=== PATIENT | female | born 1985 ===

== ENCOUNTER 2018-03-21 10:59 | Observation (INO) | payer BC ==
--- NOTE | 2018-03-21 06:49 | PDGENHP ---
History and Physical History and Physical: Assessment and Plan: 1. Endometriosis of pelvic peritoneum Yue has chronic pelvic pain secondary to untreated extensive endometriosis. We reviewed all conservative and surgical options. She is scheduled for a robotic hysterectomy, BSO, excision of endometriosis, uterosacral ligament colpopexy, and cystoscopy. The risks, benefits, and alternatives were presented and informed consent obtained. 2. Chronic pelvic pain in female Subjective: Patient ID: Yue Bowers is a 32 y.o. female who presents to [facility] for endometriosis. REED Turner is a 32-year-old para 4 woman who lives in [facility]. Her first child was born vaginally. She apparently had significant tearing requiring some sort of reconstructive surgery. Her next 2 children were born by section. She has a long history of pelvic pain and heavy menses. She underwent a laparoscopy about a year ago. Yue emailed me a copy of her operative photos which shows endometriosis covering the entire surface of her uterine serosa. She also appears to have gelatinous looking endometriosis on both ovaries. She has lesions in the posterior cul-de-sac but were not well photographed. Her physician only took photos and did not treat it. She continues to suffer from daily pain. She often cannot leave the house secondary to pain. She has had an upper and lower GI which were reportedly normal. She has completed her childbearing. She has tried medical management without any success. As result she is requesting surgical intervention. We briefly reviewed the procedure as well as her history. She will be scheduled for a robotic hysterectomy with excision of endometriosis. We will discuss the pros and cons of leaving her ovaries when she comes for her preoperative visit. PastMedicalHistory Past Medical History: Diagnosis Date Asthma PastSurgicalHistory Past Surgical History: Procedure Laterality Date APPENDECTOMY SECTION 3 CHOLECYSTECTOMY UPPER GASTROINTESTINAL ENDOSCOPY CURRENT MEDICATIONS: Current Outpatient Medications Medication Sig acetaminophen (TYLENOL) 325 mg tablet ALPRAZolam (XANAX) 0.25 mg tablet Take 0.25 mg by mouth 3 times daily as needed. buPROPion (WELLBUTRIN XL) 300 mg 24 hr tablet Take 300 mg by mouth every morning. cyclobenzaprine (FLEXERIL) 5 mg tablet Take 5 mg by mouth 3 times daily as needed for Muscle spasms. dextroamphetamine-amphetamine (ADDERALL) 10 mg tablet Take 10 mg by mouth 2 times daily. fentaNYL (DURAGESIC) 75 mcg/hr patch Place 1 patch onto the skin every 72 hours. gabapentin (NEURONTIN) 300 mg capsule Take 3 capsules by mouth 3 times daily for Neuropathic Pain. ibuprofen (ADVIL,MOTRIN) 400 mg tablet Take 400 mg by mouth every 4 hours as needed for Pain. Take with food. medroxyPROGESTERone (PROVERA) 2.5 mg tablet Take 2.5 mg by mouth daily. naproxen sodium (ALEVE) 220 mg tablet Take 220 mg by mouth 2 times daily ( with meals). norelgestromin-eth estradiol (ORTHO EVRA) 150-35 mcg/[address] 1 patch onto the skin once a week for pelvic pain. Use continuously no breaks ondansetron (ZOFRAN) 8 mg tablet Take 8 mg by mouth 2 times daily. ondansetron (ZOFRAN-ODT) 8 mg disintegrating tablet Take 8 mg by mouth every 8 hours as needed for Nausea. Dissolve on top of the tongue. oxyCODONE (ROXICODONE) 30 mg immediate release tab Take 30 mg by mouth every 6 hours as needed for Pain. promethazine (PHENERGAN) 25 mg tablet Take 25 mg by mouth 2 times daily as needed for Nausea. propranolol (INDERAL) 10 mg tablet Take 10 mg by mouth 3 times daily. sumatriptan (IMITREX) 50 mg tablet Take 50 mg by mouth as needed for Migraine. May repeat dose 1 time after 2 hours if needed. Do not exceed 200mg in 24 hours. No current facility-administered medications for this visit. ALLERGIES: Iodine and Latex I have reviewed, verified and agree with the past medical, surgical, , family, social and ROS history as documented by the RN today. Objective: Vital Signs: There were no vitals taken for this visit. Physical Exam Gen: This is an alert, well developed woman in no distress. Neuro: She moves all extremities. Psych: She is appropriate, oriented, with normal affect. Neck: No thyroid enlargement, adenopathy, or tenderness. Lungs: Clear to ascultation, no wheezes or rales. Heart: Regular rate and rhythm without obvious murmurs. Abdomen: Soft, non-tender, without guarding, rebound, or masses. Extremities: No edema or cyanosis. Pelvic: Normal external genitalia. Non-gaping introitus, vagina without discharge, adequately estrogenized, no significant prolapse. Cervix without lesions or discharge. Uterus normal sized. Adnexa non-tender without enlargement. The uterus has minimal mobility. She is tender surround the cervix , posterior uterus and posterior cul de sac. DATA: I have reviewed the pertinent medical records. TIME/COMMUNICATION: I personally spent a total of 70 minutes. Of that 55 minutes was counseling/ coordination of patient's care. See my note above for details. Amador Briscoe MD Board Certified Female Pelvic Medicine and Reconstructive Surgery Director of Minimally Invasive Gynecologic Surgery, [facility] Surgeon in Minimally Invasive Gynecologic Surgery [facility] Surgeon in Robotic Surgery
[2018-03-21] MEDS ORDERED: BUPIVACAINE/EPI 0.5% 30 ML SDV ONE ×2 (11:02→12:17)
[2018-03-21] MEDS ORDERED: PHENAZOPYRIDINE HCL 200 MG TAB PO ONE (11:19)
[2018-03-21] MEDS ORDERED: ACETAMINOPHEN 500 MG TAB PO ONE (11:19)
[2018-03-21] MEDS ORDERED: GABAPENTIN 400 MG CAP PO ONE (11:19)
[2018-03-21] MEDS ORDERED: LR 1,000 ML IV ONE (11:19)
[2018-03-21] MEDS ORDERED: GABAPENTIN 300 MG CAP PO ONE (11:30)
--- NOTE | 2018-03-21 11:57 | PDHPUP ---
History & Physical Update H&P update statement: This history and physical update is based on an assessment of the patient which was completed after admission or registration (within 24 hours), but prior to the surgery/procedure. H&P update: H&P reviewed & patient examined, no change in patient's condition since H&P completed
--- NOTE | 2018-03-21 11:57 | PDANEPAE ---
ANE History of Present Illness 32 year old for hysterectomy ANE Past Medical History - Cardiovascular History Hx Hypertension: No Hx Arrhythmias: No Hx Chest Pain: No Hx Coronary Artery / Peripheral Vascular Disease: No Hx CHF / Valvular Disease: No Hx Palpitations: No - Pulmonary History Hx COPD: No Hx Asthma/Reactive Airway Disease: Yes Hx Recent Upper Respiratory Infection: No Hx Oxygen in Use at Home: No Hx Sleep Apnea: No Sleep Apnea Screening Result - Last Documented: Negative Pulmonary History Comment: ASTHMA INHALER TRILOGY ELIPTA - Neurologic History Hx Cerebrovascular Accident: No Hx Seizures: No Hx Dementia: No - Endocrine History Hx Diabetes: No - Renal History Hx Renal Disorders: No Renal History Comment: KIDNEY STONES - Liver History Hx Hepatic Disorders: No - Neurological & Psychiatric Hx Hx Neurological and Psychiatric Disorders: Yes Neurological / Psychiatric History Comment: SITUATIONAL DEPRESSION AND ANXIETY - Cancer History Hx Cancer: No - Congenital Disorder History Hx Congenital Disorders: No - GI History Hx Gastrointestinal Disorders: Yes Gastrointestinal History Comment: GASTROPERISIS - Other Health History Other Health History: PT HAS 70% HEARING LOSS. ENDOMETRIOSIS - Chronic Pain History Chronic Pain: Yes (LOWER BACK PAIN) - Surgical History Prior Surgeries: VAGINAL RECONSTRUCIVE. 3 C-SECTIONS GALLBLADDER 4 KIDNEY STENTS/REMOVED ANE Review of Systems Review of systems is: negative Review of Systems: - Exercise capacity METS (RN): 4 METS ANE Patient History - Allergies Allergies/Adverse Reactions: avocado Allergy (Verified 02/28/18 17:33) Tingling of mouth/throat banana Allergy (Verified 02/28/18 17:33) Tingling of mouth/throat iodine Allergy (Verified 02/28/18 17:33) Anaphylaxis latex Allergy (Verified 02/28/18 17:33) Hives seafood/iodine Allergy (Uncoded 02/28/18 17:33) Anaphylaxis - Home Medications Home Medications: Acetaminophen 02/28/18 [Last Taken Unknown] Adderall 10 MG (*) 02/28/18 [Last Taken Unknown] Buspar (*) 02/28/18 [Last Taken Unknown] Cyclobenzaprine 02/28/18 [Last Taken Unknown] Cymbalta 02/28/18 [Last Taken Unknown] Gabapentin 02/28/18 [Last Taken Unknown] Ibuprofen 02/28/18 [Last Taken Unknown] Imitrex 02/28/18 [Last Taken Unknown] Marinol 02/28/18 [Last Taken Unknown] Maxalt 02/28/18 [Last Taken Unknown] Propranolol HCl 02/28/18 [Last Taken Unknown] Protonix 02/28/18 [Last Taken Unknown] Subutex Sl 02/28/18 [Last Taken Unknown] - NPO status NPO Since - Liquids (Date): 03/21/18 NPO Since - Liquids (Time): 09:00 NPO Since - Solids (Date): 03/20/18 NPO Since - Solids (Time): 23:30 - Smoking Hx Smoking Status: Former smoker - Family Anes Hx Family Hx Anesthesia Complications: NONE ANE Labs/Vital Signs - Vital Signs Blood Pressure: 112/79 Heart Rate: 94 Respiratory Rate: 10 O2 Sat (%): 99 Height: 152.4 cm Weight: 62.596 kg ANE Physical Exam - Airway Neck exam: FROM Mallampati Score: Class 1 Mouth exam: normal dental/mouth exam - Pulmonary Pulmonary: no respiratory distress - Cardiovascular Cardiovascular: regular rate and rhythym - ASA Status ASA Status: II ANE Anesthesia Plan Anesthesia Plan: general endotracheal anesthesia
[2018-03-21] MEDS ORDERED: MIDAZOLAM 2 MG/2 ML VIAL IVP ONE (11:59)
[2018-03-21] MEDS ORDERED: MIDAZOLAM 2 MG/2 ML VIAL ONE (12:00)
[2018-03-21] MEDS ORDERED: ceFAZolin 2 GM/DEXTROSE 100 ML IV ONE (12:09)
[2018-03-21] MEDS ORDERED: fentaNYL 250 MCG/5 ML INJ ONE (12:28)
[2018-03-21] MEDS ORDERED: PROPOFOL 200 MG/20 ML VIAL ONE (12:28)
[2018-03-21] MEDS ORDERED: PROMETHAZINE HCL 25 MG/ML INJ IVP PRN ×2 (14:11→17:01)
[2018-03-21] MEDS ORDERED: NALOXONE HCL 0.4 MG/ML INJ IVP PRN ×3 (14:11→17:44)
[2018-03-21] MEDS ORDERED: ONDANSETRON 4 MG/2 ML VIAL IVP PRN ×3 (14:11→17:01)
[2018-03-21] MEDS ORDERED: HYDROmorphONE/DILAUDID 1 MG/ML INJ IVP PRN ×2 (14:11)
[2018-03-21] MEDS ORDERED: ALBUTEROL 3 ML DEYVIAL IH PRN ×2 (14:11→17:01)
[2018-03-21] MEDS ORDERED: HYDROmorphONE/DILAUDID 2 MG/ML INJ ONE (14:13)
--- NOTE | 2018-03-21 14:13 | POSTANESTH ---
Post Anesthetic Evaluation Cardiovascular Status: Normal, Stable Respiratory Status: Normal, Stable, Requires Airway Assist Pain Control: Adequate, Prn Tx Ordered Nausea/Vomiting Control: Adequate, Prn Tx Ordered Complications Possibly Related to Anesthesia: None Noted
[2018-03-21] MEDS ORDERED: fentaNYL 100 MCG/2 ML INJ ONE ×2 (14:14→14:49)
[2018-03-21] MEDS: fentaNYL 100 MCG/2 ML INJ IVP PRN ×4 (14:15→15:16)
[2018-03-21] MEDS ORDERED: SUMAtriptan 50 MG TAB PO PRN (14:18)
[2018-03-21] MEDS ORDERED: PROMETHAZINE HCL 25 MG TAB PO PRN (14:18)
[2018-03-21] MEDS ORDERED: Rizatriptan Benzoate [Maxalt Mlt] 10 MG PO PRN (14:18)
[2018-03-21] MEDS ORDERED: HYDROmorphONE/DILAUDID 4 MG TAB PO PRN (14:18)
--- NOTE | 2018-03-21 14:18 | POSTOPPROG ---
Post Op Note Date of Operation: 03/21/18 Surgeon: Amador Briscoe Home [facility] Clinician: Aster Dial Anesthesia: GET(General Endotracheal) Pre-op Diagnosis: Endometriosis Post-op Diagnosis: same Procedure: robotic hyst/BSO. excise endo, bilat ureterolysis, cysto Findings: ureters function at end of case Inf/Abcess present in the surg proc area at time of surgery?: No EBL: Minimal Complications: None
[2018-03-21] MEDS: HYDROmorphONE/DILAUDID 2 MG/ML INJ IVP PRN ×5 (14:20→17:08)
[2018-03-21] MEDS ORDERED: LR 1,000 ML IV SCH (14:30)
[2018-03-21] MEDS ORDERED: DIAZEPAM 5 MG/ML 1 ML SYR IVP ONE (14:30)
[2018-03-21] MEDS ORDERED: DIAZEPAM 5 MG/ML 1 ML SYR ONE (14:32)
--- NOTE | 2018-03-21 15:01 | GOP ---
DATE OF OPERATION: 03/21/2018 SURGEON: Amador Briscoe MD MAIL CLERK BILLS: Aster Dial CFA. ANESTHESIA: General. PREOPERATIVE DIAGNOSIS: 1. Endometriosis. 2. Dysmenorrhea. 3. Dyspareunia. 4. Pelvic pain. 5. Uterine prolapse. POSTOPERATIVE DIAGNOSIS: 1. Endometriosis. 2. Dysmenorrhea. 3. Dyspareunia. 4. Pelvic pain. 5. Uterine prolapse. PROCEDURE PERFORMED: 1. Robotic-assisted total laparoscopic hysterectomy with bilateral salpingo-oophorectomy. 2. Excision of extensive endometriosis in anterior and posterior cul-de-sacs bilateral ovarian fossa e. 3. Bilateral uterosacral ligament colpopexy. 4. Bilateral ureterolysis. 5. Excision of rectal lesion. 6. Cystoscopy. FINDINGS: SPECIMENS: 1. Uterus bilateral tubes, and ovaries. 1. Pelvic peritoneum with endometriosis. 2. ESTIMATED BLOOD LOSS: Scant. DESCRIPTION OF PROCEDURE: The patient was taken to the operating room where she was identified. Gen eral anesthesia was administered and found to be adequate. She was placed in the lithotomy position and prepared and draped in normal sterile fashion. A [employer] uterine manipulator was placed into the e ndometrial cavity and sutured to the cervix. A Hayward catheter was then placed. A 1 cm infraumbilical incision was made with a scalpel. The Veress needle with the CO2 gas flowing w as advanced into the peritoneal cavity. The abdomen was then insufflated with carbon dioxide gas. T he 12 mm trocar, followed by the laparoscope were then inserted. The upper abdomen was unremarkable. There was no evidence of endometriosis on either diaphragm, stomach, liver, gallbladder, or bowel. Two lateral ports were placed in the right and one on the left under direct visualization. She then was placed in Trendelenburg position and the da Aisha robot docked on the left side. The instrument s were then brought into the abdominal cavity under direct visualization. Patient had extensive endometriosis in the anterior and posterior cul-de-sacs, as well as both ovaria n fossae. The left round ligament was divided. The anterior leaf of the broad ligament was incised to the bifurcation of the left common iliac vessels. A window was creating in the posterior leaf an terior to the ureter. The infundibulopelvic vessels were then cauterized and transected. The anteri or leaf of the broad ligament was then incised over the left uterine vessels and across the cervix. The bladder was gently dissected off the cervix and upper vagina. The left uterine vasculature was t hen cauterized and transected. The exact same procedure was performed on the patient's right side. Attention was then turned to the ovarian fossae. The patient required bilateral ureterolysis given t he extensive endometriosis in the lateral pelvic sidewalls. The peritoneum at the pelvic brims was i ncised. The ureters were gently dissected free and lateralized off the overlying peritoneum and endo metriosis from the pelvic brim all the way down to the bladder. Once this was accomplished, the enti re ovarian fossa peritoneum bilaterally was completely excised. The posterior cul-de-sac was then ex cised from the distal rectum up to and including the uterus and lateral to the uterosacral ligaments. The patient had some endometriosis on the distal rectum requiring excision. This extended approxim ately 30 to 40 percent through the muscularis. Finally, the anterior cul-de-sac peritoneum was compl etely excised. A circumferential colpotomy incision was then made and all specimens were removed through the vagina. The vaginal cuff was closed with a running suture of 0 V-Loc 180. A bilateral uterosacral ligament colpopexy was performed by attaching the lateral aspects of the vaginal cuff to the ipsilateral uter osacral ligaments near the sacrospinous ligament coccygeus complexes. The pelvis was then irrigated with sterile saline, and hemostasis was present. The robot was then undocked. Cystoscopy was then performed. Both ureters had vigorous jets of urine . There was no evidence of bladder, nor urethral injury seen. No obvious pathology was seen. Anest hesia was reversed. The patient was taken the PACU awake in stable condition. COMPLICATIONS: None. DISPOSITION: Patient stable to PACU. /[id number]/MODL
[2018-03-21] MEDS ORDERED: DRONABINOL 2.5 MG CAP PO SCH (15:15)
[2018-03-21] MEDS ORDERED: ONDANSETRON 4 MG/2 ML VIAL ONE (15:15)
[2018-03-21] MEDS: GABAPENTIN 100 MG CAP PO SCH ×2 (16:25→21:38)
[2018-03-21] MEDS: GABAPENTIN 300 MG CAP PO SCH ×2 (16:28→21:39)
[2018-03-21] MEDS ORDERED: HYDROmorphONE/DILAUDID 2 MG/ML INJ IVP PRN (17:01)
[2018-03-21] MEDS ORDERED: fentaNYL 100 MCG/2 ML INJ IVP PRN (17:01)
--- NOTE | 2018-03-21 17:03 | POSTANESTH ---
Post Anesthetic Evaluation Cardiovascular Status: Normal, Stable Respiratory Status: Normal, Stable Level of Consciousness/Mental Status: Can Participate in Eval, Mildly Sleepy, Arousable Pain Control: Inadeq, Add Tx Required Nausea/Vomiting Control: Adequate, Prn Tx Ordered Complications Possibly Related to Anesthesia: None Noted
[2018-03-21] MEDS: CYCLOBENZAPRINE 10 MG TAB PO PRN (17:09)
[2018-03-21] MEDS: DRONABINOL 2.5 MG CAP PO SCH (17:33)
[2018-03-21] MEDS: DIAZEPAM 5 MG/ML 1 ML SYR IVP PRN (18:21)
[2018-03-21] MEDS: HYDROmorphONE/DILAUDID 6 MG/30 ML PCA IV PRN (18:37)
[2018-03-21] MEDS: KETOROLAC 30 MG/1 ML SDV IVP SCH (20:22)
[2018-03-21] MEDS: busPIRone 15 MG TAB PO SCH (21:36)
[2018-03-21] MEDS: SIMETHICONE 80 MG TAB CHEW PO SCH ×2 (21:37→22:08)
[2018-03-21] MEDS: DOCUSATE SODIUM 100 MG CAP PO SCH (21:37)
[2018-03-21] MEDS: ADDERALL 20 MG TAB PO SCH (21:40)
[2018-03-22] MEDS: KETOROLAC 30 MG/1 ML SDV IVP SCH ×3 (02:03→16:35)
[2018-03-22] MEDS: HYDROmorphONE/DILAUDID 6 MG/30 ML PCA IV PRN (02:13)
[2018-03-22] MEDS: DIAZEPAM 5 MG/ML 1 ML SYR IVP PRN ×2 (06:04→16:00)
[2018-03-22] MEDS: CYCLOBENZAPRINE 10 MG TAB PO PRN ×3 (06:08→21:15)
[2018-03-22] MEDS: DRONABINOL 2.5 MG CAP PO SCH ×2 (07:53→18:37)
[2018-03-22 08:25] LABS: PLATELET COUNT 349 10^3/uL (150-400)
[2018-03-22] MEDS: GABAPENTIN 100 MG CAP PO SCH ×3 (09:29→21:19)
[2018-03-22] MEDS: GABAPENTIN 300 MG CAP PO SCH ×2 (09:30→15:52)
[2018-03-22] MEDS: DULoxetine 30 MG CAP PO SCH (09:30)
[2018-03-22] MEDS: ADDERALL 20 MG TAB PO SCH ×2 (09:31→21:17)
[2018-03-22] MEDS: busPIRone 15 MG TAB PO SCH ×2 (09:32→21:15)
[2018-03-22] MEDS: SIMETHICONE 80 MG TAB CHEW PO SCH ×4 (09:32→21:20)
[2018-03-22] MEDS: HYDROmorphONE/DILAUDID 2 MG/ML INJ IVP PRN ×2 (09:37→23:30)
[2018-03-22] MEDS: HYDROmorphONE/DILAUDID 2 MG TAB PO PRN ×3 (11:31→21:13)
[2018-03-22] MEDS: DOCUSATE SODIUM 100 MG CAP PO SCH ×2 (12:02→21:20)
[2018-03-22] MEDS ORDERED: SUMAtriptan 25 MG TAB PO PRN (15:30)
[2018-03-22] MEDS: oxyCODONE IR 5 MG TAB PO PRN (22:38)
[2018-03-23] MEDS: ALPRAZolam 0.5 MG TAB PO PRN ×2 (00:27→09:05)
[2018-03-23] MEDS: GABAPENTIN 100 MG CAP PO SCH ×3 (01:01→16:08)
[2018-03-23] MEDS: GABAPENTIN 300 MG CAP PO SCH ×3 (01:01→16:08)
[2018-03-23] MEDS: HYDROmorphONE/DILAUDID 2 MG/ML INJ IVP PRN (01:42)
[2018-03-23] MEDS: HYDROmorphONE/DILAUDID 2 MG TAB PO PRN ×3 (03:51→14:09)
[2018-03-23] MEDS: oxyCODONE IR 5 MG TAB PO PRN ×3 (06:19→15:28)
[2018-03-23] MEDS: ADDERALL 20 MG TAB PO SCH (08:10)
[2018-03-23] MEDS: DOCUSATE SODIUM 100 MG CAP PO SCH (08:11)
[2018-03-23] MEDS: busPIRone 15 MG TAB PO SCH (08:12)
[2018-03-23] MEDS: DRONABINOL 2.5 MG CAP PO SCH (08:12)
[2018-03-23] MEDS: DULoxetine 30 MG CAP PO SCH (08:13)
[2018-03-23 09:25] VITALS: BP 92/69
[2018-03-23] MEDS ORDERED: IBUPROFEN 600 MG TAB PO PRN (09:48)
[2018-03-24] MEDS ORDERED: fentaNYL 75 MCG PATCH TD SCH (09:00)
--- NOTE | 2018-03-28 10:11 | GDS ---
DISCHARGE DIAGNOSES: 1. Endometriosis. 2. Pelvic pain. PROCEDURES: 1. Robotic-assisted total laparoscopic hysterectomy, bilateral salpingo-oophorectomy. 2. Excision of endometriosis. 3. Bilateral ureterolysis. 4. Uterosacral ligament colpopexy. 5. Excision of rectal lesion. 6. Cystoscopy. HISTORY: The patient is a 32-year-old, para 4 woman from [place], [place] with a long history of pelv ic pain and endometriosis. She was taken to the operating room on 03/21/2018, where she underwent th e above-mentioned procedures without complications. Her postoperative course was uneventful. The mo rning after surgery she was ambulating, voiding, and tolerating a general diet. She was discharged o n 03/23/2018. She had pain control issues requiring a 2nd night of hospitalization due to her chroni c pain and chronic narcotic use. She was discharged home on postoperative day #2 in good condition. Medications included oxycodone IR and Dilaudid for pain management in addition to ibuprofen. She di d have some difficulty voiding and she was sent home with a Hayward catheter in place. She is to martina w jessie at the end of the week in the office for a bladder trial. /[id number]/MODL
== END 2018-03-23 17:15 | disposition home or self-care (01) ==
LOC: F3N 10:59 → FOB 15:50
PROVIDERS: ADMIT Obstetrics & Gynecology; ATTEND Obstetrics & Gynecology
PROC: 0UT24ZZ Resection of Bilateral Ovaries, Percutaneous Endoscopic Approach (ICD-10-PCS; principal; 2018-03-21 12:45)
PROC: 0UT94ZZ Resection of Uterus, Percutaneous Endoscopic Approach (ICD-10-PCS; principal; 2018-03-21 12:45)
PROC: 0UBF4ZZ Excision of Cul-de-sac, Percutaneous Endoscopic Approach (ICD-10-PCS; principal; 2018-03-21 12:45)
PROC: 8E0W4CZ Robotic Assisted Procedure of Trunk Region, Percutaneous Endoscopic Approach (ICD-10-PCS; principal; 2018-03-21 12:45)
PROC: 0UT74ZZ Resection of Bilateral Fallopian Tubes, Percutaneous Endoscopic Approach (ICD-10-PCS; principal; 2018-03-21 12:45)
PROC: 0DBP4ZZ Excision of Rectum, Percutaneous Endoscopic Approach (ICD-10-PCS; principal; 2018-03-21 12:45)
DX: N80.0 Endometriosis of uterus (principal)
CPT/HCPCS: 58542; 58662; G0378; J1170; J1885; J2250; J2270; J2405; J2704; J3010; J3360